=== PATIENT | female | born 1990 | race Caucasian/White ===

== ENCOUNTER 2019-11-17 12:57 | Emergency (ER) | payer BC, OTHER ==
[~2019-11-17] VITALS: Ht 167.6 cm; Wt 61.2 kg
[2019-11-17 13:28] VITALS: BP 131/85
--- NOTE | 2019-11-17 13:34 | NUR ---
Patient discharged to home in stable condition. Written and verbal after care instructions given. Patient verbalizes understanding of instruction.
--- NOTE | 2019-11-17 13:35 | NUR ---
URINE SENT TO LAB
[2019-11-17 13:46] LABS: BILIRUBIN,URINE Negative (NEGATIVE); BLOOD, URINE Trace-intact Ery/uL (NEGATIVE); COLOR,URINE Yellow (YELLOW); KETONES,URINE Negative (NEGATIVE); LEUKOCYTE ESTERASE ,URINE Small (NEGATIVE); NITRITE, URINE Negative (NEGATIVE); PH,URINE 5.5 (5.0-8.0); PROTEIN,URINE Negative (NEGATIVE); UGLUCOSE Negative (NEGATIVE); UROBILINOGEN,URINE 0.2 EU/dL (0.2)
[2019-11-17 13:47] LABS: APPEARANCE,URINE SLIGHTLY CLOUDY (CLEAR)
[2019-11-17 13:54] LABS: BACTERIA,URINE Few /HPF (None Seen); SQUAMOUS EPITHELIAL CELL,UR Few /HPF (None Seen); URINE AMORPHOUS URATE Few /HPF (None Seen)
== END 2019-11-17 13:34 | disposition home or self-care (01) ==
LOC: ER 13:00
DX: N39.0 Urinary tract infection, site not specified (principal)
CPT/HCPCS: 81000-TC; 84703-TC; 87086-TC

== ENCOUNTER 2019-11-21 15:25 | Outpatient (CLI) | payer BC ==
[2019-11-21 16:18] LABS: BASOPHILS # (AUTO) 0.1 /CMM (0.0-0.2); BASOPHILS % (AUTO) 0.6 % (0.0-2.0); EOSINOPHILS % (AUTO) 2.8 % (0.0-6.0); HEMATOCRIT 43 % (33-45); HEMOGLOBIN 14.3 g/dL (11.5-14.8); LYMPHOCYTES # (AUTO) 3.5 /CMM (0.8-4.8); LYMPHOCYTES % (AUTO) 33.1 % (20.0-44.0); MEAN CORPUSCULAR HGB CONC 33 g/dl (31.0-36.0); MEAN CORPUSCULAR VOLUME 89 fL (82-100); MONOCYTES # (AUTO) 0.9 /CMM (0.1-1.30); MONOCYTES % (AUTO) 8.5 % (2.0-12.0); NEUTROPHILS # (AUTO) 5.8 /CMM (1.8-8.9); PLATELET COUNT (AUTO) 235 /CMM (150-450); RED BLOOD CELL COUNT(AUTO) 4.86 MIL/uL (4.0-5.2); WHITE BLOOD COUNT (AUTO) 10.5 K/uL (4.3-11.0)
[2019-11-21 16:46] LABS: ALBUMIN 4.3 g/dL (3.4-5.0); BILIRUBIN,DIRECT 0.1 mg/dL (0.0-0.2); BILIRUBIN,TOTAL 0.3 mg/dL (0.2-1.0); CALCIUM, SERUM 8.7 mg/dL (8.5-10.1); CREATININE 1.2 mg/dL (0.6-1.3); POTASSIUM 3.7 mmol/L (3.5-5.1); TOTAL PROTEIN, SERUM 8.1 g/dL (6.4-8.2)
[2019-11-21 16:59] LABS: THYROID STIMULATING HORMONE 1.198 uIU/mL (0.358-3.74)
== END 2019-11-21 23:59 | disposition home or self-care (01) ==
LOC: MSC 15:25
PROVIDERS: ATTEND Internal Medicine
DX: R30.0 Dysuria (principal); R10.11 Right upper quadrant pain; Z87.448 Personal history of other diseases of urinary system
CPT/HCPCS: 36415; 80048-TC; 80061-TC; 80076-TC; 82728-TC; 83540-TC; 84443-TC; 85025-TC; 87491; 87591

== ENCOUNTER 2019-11-23 09:13 | Outpatient (CLI) | payer BC | END 2019-11-23 23:59 | disposition home or self-care (01) | LOC: US 09:13 | PROVIDERS: ATTEND Internal Medicine | DX: R30.0 Dysuria (principal); N13.8 Other obstructive and reflux uropathy | CPT/HCPCS: 76700-TC ==

== ENCOUNTER 2021-05-20 11:24 | Outpatient (CLI) | payer BC ==
[2021-05-20 12:18] LABS: BASOPHILS # (AUTO) 0.1 K/uL (0.0-0.2); EOSINOPHILS % (AUTO) 2.9 % (0.0-6.0); HEMATOCRIT 43 % (33-45); HEMOGLOBIN 14.3 g/dL (11.5-14.8); LYMPHOCYTES # (AUTO) 3.4 K/uL (0.8-4.8); LYMPHOCYTES % (AUTO) 35.2 % (20.0-44.0); MEAN CORPUSCULAR HGB CONC 33 g/dl (31.0-36.0); MEAN CORPUSCULAR VOLUME 88 fL (82-100); MONOCYTES # (AUTO) 0.8 K/uL (0.1-1.30); MONOCYTES % (AUTO) 7.9 % (2.0-12.0); NEUTROPHILS # (AUTO) 5.1 K/uL (1.8-8.9); PLATELET COUNT (AUTO) 256 K/uL (150-450); RED BLOOD CELL COUNT(AUTO) 4.93 MIL/uL (4.0-5.2); WHITE BLOOD COUNT (AUTO) 9.6 K/uL (4.3-11.0)
[2021-05-20 13:30] LABS: THYROID STIMULATING HORMONE 1.05 uIU/mL (0.358-3.74)
[2021-05-20 18:26] LABS: CALCIUM, SERUM 8.8 mg/dL (8.5-10.1); CREATININE 0.7 mg/dL (0.6-1.3); POTASSIUM 3.8 mmol/L (3.5-5.1)
== END 2021-05-20 23:59 | disposition home or self-care (01) ==
LOC: LAB 11:24
PROVIDERS: ATTEND Internal Medicine
DX: E03.9 Hypothyroidism, unspecified (principal); J30.9 Allergic rhinitis, unspecified; R53.1 Weakness
CPT/HCPCS: 36415; 80048-TC; 80061-TC; 80074; 84443-TC; 85025-TC

== ENCOUNTER 2021-12-02 08:53 | Outpatient (CLI) | payer BC | END 2021-12-02 23:59 | disposition home or self-care (01) | LOC: US 08:53 | PROVIDERS: ATTEND Internal Medicine | DX: R19.00 Intra-abdominal and pelvic swelling, mass and lump, unspecified site (principal) | CPT/HCPCS: 76856-TC ==

== ENCOUNTER 2021-12-03 10:11 | Outpatient (CLI) | payer BC ==
[2021-12-03 11:27] LABS: BASOPHILS # (AUTO) 0.1 K/uL (0.0-0.2); EOSINOPHILS % (AUTO) 2.8 % (0.0-6.0); HEMATOCRIT 41 % (33-45); HEMOGLOBIN 13.4 g/dL (11.5-14.8); LYMPHOCYTES # (AUTO) 2.3 K/uL (0.8-4.8); LYMPHOCYTES % (AUTO) 31.3 % (20.0-44.0); MEAN CORPUSCULAR HGB CONC 33 g/dl (31.0-36.0); MEAN CORPUSCULAR VOLUME 89 fL (82-100); MONOCYTES # (AUTO) 0.6 K/uL (0.1-1.30); NEUTROPHILS # (AUTO) 4.3 K/uL (1.8-8.9); NEUTROPHILS % (AUTO) 56.9 % (43.0-81.0); PLATELET COUNT (AUTO) 224 K/uL (150-450); RED BLOOD CELL COUNT(AUTO) 4.59 MIL/uL (4.0-5.2); WHITE BLOOD COUNT (AUTO) 7.5 K/uL (4.3-11.0)
[2021-12-03 11:54] LABS: CALCIUM, SERUM 8.8 mg/dL (8.5-10.1); CREATININE 0.8 mg/dL (0.6-1.3)
[2021-12-03 12:10] LABS: THYROID STIMULATING HORMONE 0.969 uIU/mL (0.358-3.74)
== END 2021-12-03 23:59 | disposition home or self-care (01) ==
LOC: LAB 10:11
PROVIDERS: ATTEND Internal Medicine
DX: R19.00 Intra-abdominal and pelvic swelling, mass and lump, unspecified site (principal)
CPT/HCPCS: 36415; 80048-TC; 83540-TC; 84443-TC; 85025-TC

== ENCOUNTER 2021-12-04 08:48 | Outpatient (CLI) | payer BC ==
[2021-12-04] MEDS ORDERED: GADOTERATE MEGLUMINE 10 MMOL/20 ML VIAL IV ONE (08:49)
== END 2021-12-04 23:59 | disposition home or self-care (01) ==
LOC: MRI 08:48
PROVIDERS: ATTEND Internal Medicine
DX: D25.9 Leiomyoma of uterus, unspecified (principal); R19.00 Intra-abdominal and pelvic swelling, mass and lump, unspecified site
CPT/HCPCS: 72197; A9575

== ENCOUNTER 2024-01-17 18:48 | Inpatient (IN) | payer BC ==
[~2024-01-17] VITALS: Ht 167.6 cm; Wt 75.3 kg
[2024-01-17 20:00] VITALS: BP 117/73; TEMP 98.8; O2SAT 98
[2024-01-17] MEDS ORDERED: MAG HYDROX/AL HYDROX/SIMETH 30 ML UDC PO PRN (20:00)
[2024-01-17] MEDS ORDERED: ZOLPIDEM TARTRATE 5 MG TABLET PO PRN (20:00)
[2024-01-17] MEDS ORDERED: ONDANSETRON HCL/PF 4 MG/2 ML VIAL IVP PRN (20:00)
[2024-01-17] MEDS ORDERED: ACETAMINOPHEN 325 MG TABLET PO PRN (20:00)
[2024-01-17] MEDS ORDERED: Z GUARD REMEDY 4 OZ OINT TP PRN (20:00)
[2024-01-17] MEDS ORDERED: CEFTRIAXONE 1 G in IV D5W 50 ML IV SCH (20:00)
[2024-01-17] MEDS ORDERED: MAGNESIUM HYDROXIDE 30 ML UDC PO PRN (20:00)
[2024-01-17] MEDS ORDERED: KETOROLAC TROMETHAMINE 15 MG/ML VIAL IV PRN (20:00)
[2024-01-17] MEDS ORDERED: FLUCONAZOLE IN NS,PREMIX 200 MG in PREMIX 1 EA IV SCH (20:00)
[2024-01-17] MEDS ORDERED: MORPHINE SULFATE INJ 2 MG/ML DISP.SYRIN IV PRN (20:30)
[2024-01-17] MEDS ORDERED: DIAZEPAM 5 MG/ML 2 ML DISP.SYRIN IV SCH (21:00)
[2024-01-17] MEDS: KETOROLAC TROMETHAMINE 15 MG/ML VIAL IV SCH (21:26)
[2024-01-17] MEDS: POLYETHYLENE GLYCOL 3350 17 GM POWD.PACK PO SCH (21:44)
[2024-01-17] MEDS ORDERED: TAMSULOSIN 0.4 MG CAP.SR.24H PO SCH (22:00)
[2024-01-17] MEDS ORDERED: DIAZEPAM 5 MG/ML 2 ML DISP.SYRIN IV PRN (22:00)
[2024-01-18] MEDS: IV NS 0.9% 1,000 ML IV PRN (04:28)
[2024-01-18 06:47] LABS: BASOPHILS # (AUTO) 0.1 K/uL (0.0-0.2); BASOPHILS % (AUTO) 0.9 % (0.0-2.0); EOSINOPHILS # (AUTO) 0.2 K/uL (0.0-0.7); EOSINOPHILS % (AUTO) 1.5 % (0.0-6.0); HEMATOCRIT 38 % (33-45); HEMOGLOBIN 12.9 g/dL (11.5-14.8); LYMPHOCYTES # (AUTO) 2.6 K/uL (0.8-4.8); LYMPHOCYTES % (AUTO) 22.5 % (20.0-44.0); MEAN CORPUSCULAR HEMOGLOBIN 29 PG (26.0-33.0); MEAN CORPUSCULAR HGB CONC 34 g/dl (31.0-36.0); MEAN CORPUSCULAR VOLUME 87 fL (82-100); MONOCYTES # (AUTO) 1.1 K/uL (0.1-1.30); MONOCYTES % (AUTO) 9.4 % (2.0-12.0); NEUTROPHILS # (AUTO) 7.5 K/uL (1.8-8.9); NEUTROPHILS % (AUTO) 65.7 % (43.0-81.0); PLATELET COUNT (AUTO) 206 K/uL (150-450); RED CELL DISTRIBUTION WIDTH 13.1 % (11.5-15.0); WHITE BLOOD COUNT (AUTO) 11.4 K/uL (4.3-11.0)
[2024-01-18 07:00] VITALS: BP 131/76; TEMP 98.1; O2SAT 95
[2024-01-18 07:22] LABS: CALCIUM, SERUM 8.6 mg/dL (8.5-10.1); CREATININE 0.9 mg/dL (0.6-1.3); PHOSPHORUS 3.2 mg/dL (2.5-4.9); POTASSIUM 3.9 mmol/L (3.5-5.1)
[2024-01-18] MEDS ORDERED: [UNRECOGNIZED DRUG - OTHER] PO (09:32)
[2024-01-18] MEDS ORDERED: PNV1TABL72 PO (09:32)
[2024-01-18] MEDS ORDERED: CEPH500C2 PO (14:23)
[2024-01-18] MEDS ORDERED: TAMS-12 PO (14:24)
[2024-01-18] MEDS: FLUCONAZOLE IN NS,PREMIX 200 MG in PREMIX 1 EA IV SCH (15:51)
[2024-01-18 16:00] VITALS: BP 131/82; TEMP 98.1; O2SAT 97
[2024-01-18] MEDS: CEFTRIAXONE 1 G in IV D5W 50 ML IV SCH (17:12)
[2024-01-18] MEDS ORDERED: TAMSULOSIN 0.4 MG CAP.SR.24H PO SCH (22:00)
== END 2024-01-18 18:26 | disposition home or self-care (01) | DRG 690 ==
LOC: MED 18:48
PROVIDERS: ADMIT Nurse Practitioner Acute Care; ATTEND Nurse Practitioner Acute Care
DX: N13.6 Pyonephrosis (principal); Z88.0 Allergy status to penicillin; Z20.822 Contact with and (suspected) exposure to COVID-19; D72.829 Elevated white blood cell count, unspecified; N10 Acute pyelonephritis; B96.89 Other specified bacterial agents as the cause of diseases classified elsewhere; N20.0 Calculus of kidney
CPT/HCPCS: 36415; 80048-TC; 83735-TC; 84100-TC; 85025-TC; A4216; A4223; G0378; J0696; J1450; J1885; J7030; J7060

== ENCOUNTER 2024-10-26 07:10 | Emergency (ER) | payer BC, OTHER ==
[~2024-10-26] VITALS: Ht 167.6 cm; Wt 63.5 kg
[~2024-10-26 07:10] MED LIST: CEPH500C2 PO; PNV1TABL72 PO; TAMS-12 PO; [UNRECOGNIZED DRUG - OTHER] PO
[2024-10-26] MEDS ORDERED: PANTOPRAZOLE 40 MG VIAL ONE (07:45)
[2024-10-26] MEDS ORDERED: KETOROLAC TROMETHAMINE 15 MG/ML VIAL ONE (07:45)
[2024-10-26 07:53] LABS: PLATELET COUNT (AUTO) 235 K/uL (150-450); RED BLOOD CELL COUNT(AUTO) 4.94 MIL/uL (4.0-5.2); RED CELL DISTRIBUTION WIDTH 13.3 % (11.5-15.0); WHITE BLOOD COUNT (AUTO) 7.6 K/uL (4.3-11.0)
[2024-10-26 07:54] LABS: CALCIUM, SERUM 9.1 mg/dL (8.5-10.1); CREATININE 0.8 mg/dL (0.6-1.3); SODIUM SERUM 137.0 mmol/L (136-145); UREA NITROGEN, BLOOD 10.0 mg/dL (7-18)
[2024-10-26] MEDS: KETOROLAC TROMETHAMINE 15 MG/ML VIAL IV ONE (07:56)
[2024-10-26] MEDS: PANTOPRAZOLE 40 MG VIAL IV ONE (07:58)
[2024-10-26 08:00] LABS: ASPARTATE AMINOTRANSFERASE 13.0 U/L (15-37); TOTAL PROTEIN, SERUM 7.7 g/dL (6.4-8.2)
[2024-10-26 08:05] LABS: PREGNANCY TEST URINE QUAL NEGATIVE (NEGATIVE)
[2024-10-26 08:07] LABS: APPEARANCE,URINE SLIGHTLY CLOUDY (CLEAR); BLOOD, URINE 1+ Ery/uL (NEGATIVE); LEUKOCYTE ESTERASE ,URINE TRACE (NEGATIVE); NITRITE, URINE NEGATIVE (NEGATIVE); UGLUCOSE NEGATIVE (NEGATIVE)
[2024-10-26 08:26] LABS: SQUAMOUS EPITHELIAL CELL,UR Many /HPF (None Seen)
[2024-10-26 08:27] LABS: ADD URINE CULTURE YES
[2024-10-26] MEDS ORDERED: LEVO750T46 PO (09:21)
[2024-10-26] MEDS ORDERED: IBUP-1490 PO (09:21)
[2024-10-26 10:07] VITALS: BP 119/81; TEMP 98.7; O2SAT 100
[2024-10-27] MEDS ORDERED: ONDA4TAB5 PO (11:39)
[2024-10-27] MEDS ORDERED: HYDR-3972 PO ×2 (11:39→13:13)
== END 2024-10-26 10:07 | disposition home or self-care (01) ==
LOC: ER 07:14
DX: N39.0 Urinary tract infection, site not specified (principal); R11.2 Nausea with vomiting, unspecified; R10.13 Epigastric pain; Z86.018 Personal history of other benign neoplasm; Z87.442 Personal history of urinary calculi; Z88.0 Allergy status to penicillin; Z88.1 Allergy status to other antibiotic agents
CPT/HCPCS: 99285; 96374; 76700; 96375; 85025; 80048; 87086; 83690; 80076; 84703; 81001; 36415; J1885; J7030; J2470

== ENCOUNTER 2024-11-02 12:42 | Outpatient (CLI) | payer BC, OTHER ==
[~2024-11-02 12:42] MED LIST changes: +HYDR-3972 PO; +IBUP-1490 PO; +LEVO750T46 PO; +ONDA4TAB5 PO
[2024-11-02 13:34] LABS: APPEARANCE,URINE CLEAR (CLEAR); BLOOD, URINE TRACE-INTA Ery/uL (NEGATIVE); LEUKOCYTE ESTERASE ,URINE 1+ (NEGATIVE); NITRITE, URINE NEGATIVE (NEGATIVE); UGLUCOSE NEGATIVE (NEGATIVE)
[2024-11-02 14:01] LABS: ADD URINE CULTURE YES; SQUAMOUS EPITHELIAL CELL,UR Moderate /HPF (None Seen)
== END 2024-11-02 23:59 | disposition home or self-care (01) ==
LOC: LAB 12:42
PROVIDERS: ATTEND Internal Medicine
DX: R10.2 Pelvic and perineal pain (principal)
CPT/HCPCS: 81001; 87086-TC

== ENCOUNTER 2025-01-26 08:34 | Emergency (ER) | payer BC, OTHER ==
[~2025-01-26] VITALS: Ht 167.6 cm; Wt 72.6 kg
[2025-01-26] MEDS ORDERED: CIPROFLOXACIN HCL 250 MG TABLET ONE (09:18)
[2025-01-26] MEDS ORDERED: CIPR-262 PO (09:19)
[2025-01-26] MEDS: CIPROFLOXACIN HCL 250 MG TABLET PO ONE (09:25)
[2025-01-26 09:37] LABS: APPEARANCE,URINE SLIGHTLY CLOUDY (CLEAR); BLOOD, URINE NEGATIVE Ery/uL (NEGATIVE); LEUKOCYTE ESTERASE ,URINE 2+ (NEGATIVE); NITRITE, URINE NEGATIVE (NEGATIVE); UGLUCOSE NEGATIVE (NEGATIVE)
[2025-01-26 09:38] LABS: PREGNANCY TEST URINE QUAL NEGATIVE (NEGATIVE)
[2025-01-26 10:08] LABS: ADD URINE CULTURE YES; SQUAMOUS EPITHELIAL CELL,UR Many /HPF (None Seen)
[2025-01-26 10:34] LABS: PLATELET COUNT (AUTO) 213 K/uL (150-450); RED BLOOD CELL COUNT(AUTO) 5.02 MIL/uL (4.0-5.2); RED CELL DISTRIBUTION WIDTH 13.7 % (11.5-15.0); WHITE BLOOD COUNT (AUTO) 9.4 K/uL (4.3-11.0)
[2025-01-26 10:42] LABS: CALCIUM, SERUM 9.0 mg/dL (8.5-10.1); CREATININE 0.7 mg/dL (0.6-1.3); SODIUM SERUM 139.0 mmol/L (136-145); UREA NITROGEN, BLOOD 11.0 mg/dL (7-18)
[2025-01-26 13:20] VITALS: BP 133/89; TEMP 98.5; O2SAT 97
== END 2025-01-26 13:21 | disposition home or self-care (01) ==
LOC: ER 08:44
DX: N39.0 Urinary tract infection, site not specified (principal); Z88.0 Allergy status to penicillin; Z88.1 Allergy status to other antibiotic agents
CPT/HCPCS: 36415; 76770-TC; 80048-TC; 81001; 84703-TC; 85025-TC; 87086-TC